=== PATIENT | female | born 1970 | race Caucasian/White ===

== ENCOUNTER 2016-08-23 09:44 | Emergency (ER) | payer OTHER ==
[2016-08-23] MEDS ORDERED: ONDANSETRON HCL 4 MG/2 ML VIAL ONE (11:12)
[2016-08-23 11:26] LABS: BASOPHIL# 0.1 X 10^3uL (0.0-0.1); BASOPHILS 0.7 % (0.0-2.0); EOSINOPHILS 2.5 % (0.0-6.0); EOSINOPHILS# 0.3 X 10^3uL (0.0-0.4); HEMATOCRIT 44.1 % (36.0-48.0); HEMOGLOBIN 15.2 g/dL (12.0-16.0); LYMPHOCYTES# 1.2 X 10^3uL (0.8-3.8); MEAN CELL VOLUME 82.5 fL (80.0-100.0); MEAN CORPUS. HGB CONCENTRATION 34.6 g/dL (32.0-36.0); MEAN CORPUSCULAR HEMOGLOBIN 28.5 pg (29.0-35.0); MEAN PLATELET VOLUME 8.6 fL (7.4-10.4); MONOCYTES 4.9 % (2.0-10.0); MONOCYTES# 0.5 X 10^3uL (0.2-1.0); NEUTROPHILS 80.9 % (54.0-75.0); NEUTROPHILS# 9.1 X 10^3uL (2.6-6.7); PLATELET COUNT 281 X 10^3uL (130-440); RED BLOOD COUNT 5.34 X 10^6uL (4.20-6.10); RED CELL DISTRIBUTION WIDTH 12.6 % (11.5-14.5); WHITE BLOOD COUNT 11.2 X 10^3uL (3.9-10.7)
[2016-08-23 11:41] LABS: C-REACTIVE PROTEIN < 5.0 mg/L (<10.0)
--- NOTE | 2016-08-23 12:10 | ER NURSING DOCUMENTATION ---
Nurse's Notes [facility] Name:Jie Park Age:45 yrs Sex:Female :1970 Arrival Date:08/23/2016 Time:09:44 Bed1 Private MD: Diagnosis:Breast Infection Presentation: 08/23 09:52 Acuity: NESTOR 3 st 10:17 Presenting complaint: Patient states: Pt had a lumpectomy/cyst drainage done on the 5th at [facility] in [place]. Since her cyst drainage she had has increased pain and discomfort. Transition of care: Home. 10:17 Method Of Arrival: Private Vehicle rh Triage Assessment: 10:19 General: Appears in no apparent distress, Behavior is cooperative. Pain: Complains of rh pain in left clavicle and left breast. EENT: Oral mucosa is dry. Neuro: Level of Consciousness is awake, alert, obeys commands, Oriented to person, place, time, event. Cardiovascular: Capillary refill < 3 seconds. Respiratory: Airway is patent Respiratory effort is even, unlabored, Respiratory pattern is regular, symmetrical. Musculoskeletal: Circulation, motion, and sensation intact Range of motion intact in all extremities. Historical: - Allergies: PENICILLINS; SULFA (SULFONAMIDES); - Home Meds: 1. ibuprofen 600 mg oral tab 1 tab every 4 hours 2. acetaminophen 1,000 mg oral pack - PMHx: BREAST CANCER; - PSHx: LUMPECTOMY; - Tetanus: < 10 years. - Ebola Screening: : Patient negative for fever greater than or equal to 101.5 degrees Fahrenheit, and additional compatible Ebola Virus Disease symptoms. - Immunization history: Flu Vaccine < 1 year. - Social history: Smoking status: Patient states was never smoker of tobacco. Screenin:20 Infectious Disease Risk None. Abuse screen: Denies threats or abuse. Denies injuries rh from another. Nutritional screening: No deficits noted. Assessment: 10:20 See Triage Assessment done by same RN. rh Vital Signs: 10:00 BP 145 / 100; Pulse 97; Resp 18; Temp 98.4(O); Pulse Ox 98% on R/A; Weight 53.07 kg; rh Height 5 ft. 6 in. (167.64 cm); Pain 6/10; 11:00 Pulse 63; Resp 15; Pulse Ox 98% on 1 lpm NC; Pain 7/10; rh 12:08 BP 94 / 71; Pulse 69; Resp 16; Pulse Ox 95% on R/A; Pain 2/10; rh 10:00 Body Mass Index 18.88 (53.07 kg, 167.64 cm) rh ED Course: 09:50 Patient arrived in ED. lr3 09:52 Triage completed. rh 09:58 Ryan Fabian MD is Attending Physician. cd 10:00 Notified ED Physician of patient's arrival and chief complaint. Dr. Fabian notified. rh 10:16 Rupa Amezcua is Primary Nurse. rh 10:20 Valuables Remains with patient Patient has correct armband on for positive rh identification. Placed in gown. Bed in low position. Call light in reach. Side rails up X 1. 10:21 Warm blanket given. Pillow given. Family accompanied patient. rh 10:57 Inserted peripheral IV: 20 gauge in right antecubital area and blood collected. st 11:49 Job Skelton MD is Referral Physician. cd 11:56 Discontinued lock intact, bleeding controlled, pressure dressing applied, No rs redness/swelling at site. C/O pain with wrap over IV site, site looks healthy. States everything has been painful (IV, BP cuff, position in bed, etc). Administered Medications: 11:14 Drug: Dilaudid 0.5 mg; Route: IVP; Site: right antecubital; rh 12:08 Follow up: Response: Pain is decreased rh 11:18 Drug: Zofran 4 mg; Route: IVP; Infused Over: 2 mins; Site: right antecubital; rh 11:23 Follow up: Response: No adverse reaction rh 11:19 Drug: Dilaudid 0.5 mg; Route: IVP; Site: right antecubital; rh 12:08 Follow up: Response: Pain is decreased rh Outcome: 11:49 Discharge ordered by MD. cd 12:08 Discharged to home via wheelchair, with significant other. rh 12:08 Condition: improved 12:08 Discharge Assessment: Patient awake, alert and oriented x 3. No cognitive and/or functional deficits noted. Patient verbalized understanding of disposition instructions. 12:08 Discharge instructions given to patient, significant other, Instructed on discharge instructions, follow up and referral plans. medication usage, no drinking with medication, no driving heavy equipment, Demonstrated understanding of instructions, medications, Prescriptions given X 2. 12:08 IV D/Umberto 12:09 Patient left the ED. 08/24 18:14 Discharge F/U Call: Unable to reach: no answer nf Signatures: Jes Juarez RN RN st Stalker, Rachael, RN RN rs Friel, Nicole, RN RN nf Daley, Chris, MD MD cd Hofsess, Rachel rh Roach, Lelia lr3
--- NOTE | 2016-08-23 12:10 | ER PHYSICIAN DOCUMENTATION ---
Physician Documentation [facility] Name:Jie Park Age:45 yrs Sex:Female :1970 Arrival Date:08/23/2016 Time:09:44 Bed1 Private MD: Ryan Barba Disposition: 08/23 11:48 Critical Care: not applicable. cd Disposition: 08/23/16 11:49 Discharged to Home/Self Care. Impression: Breast Infection. - Condition is Good. - Discharge Instructions: BREAST INFECTION - MASTITIS. - Prescriptions for Clindamycin HCl 150 mg Oral Capsule - take 1 capsule by ORAL route every 6 hours for 10 days; 40 capsule. Hydrocodone- Acetaminophen 5-325 mg Oral Tablet - take 1 tablet by ORAL route every 6 hours As needed; 20 tablet. - Medical Reconciliation form form. - Follow up: Job Skelton MD; When: Tomorrow; Reason: Recheck today's complaints, Continuance of care. - Problem is new. - Symptoms are resolved. - Notes: Ice packs to breast. Clindamycin 150mg by mouth every 6 hours for 10 days. Hydrocodone one tab with food by mouth every 4 - 6 hours as needed for pain. Follow up with Dr. Skelton, General Surgeon, tomorrow. HPI: 09:55 This 45 yrs old Female presents to ER via Private Vehicle with complaints of cd Breast Problem - Pain. 09:55 The patient or guardian reports chest pain that is located primarily in the left cd breast. Onset: gradually, 3 day(s) ago. The pain does not radiate. There has been no movement of pain. Associated signs and symptoms: The patient has no apparent associated signs or symptoms. The chest pain is described as aching. Duration: The patient or guardian reports a single episode, that is still ongoing. Severity of pain: At its worst the pain was severe in the emergency department the pain is unchanged. Patient recently underwent Left Breast Cyst Aspiration on the August , 2 weeks ago. It was done by the Interventional Radiology Department at [facility]. She has also had a medial left breast lumpectomy by Dr. Waldemar Lucas. She has had pain over the aspiration region of the lateral left breast. She denies fever / chills / drainage or swelling. Historical: - Allergies: PENICILLINS; SULFA (SULFONAMIDES); - Home Meds: 1. ibuprofen 600 mg oral tab 1 tab every 4 hours 2. acetaminophen 1,000 mg oral pack - PMHx: BREAST CANCER; - PSHx: LUMPECTOMY; - Tetanus: < 10 years. - Ebola Screening: : Patient negative for fever greater than or equal to 101.5 degrees Fahrenheit, and additional compatible Ebola Virus Disease symptoms. - Immunization history: Flu Vaccine < 1 year. - Social history: Smoking status: Patient states was never smoker of tobacco. ROS: 10:18 Constitutional: Negative for chills, fever. cd 10:18 Cardiovascular: Negative for edema, palpitations. 10:18 Respiratory: Negative for cough, shortness of breath, wheezing. 10:18 Abdomen/GI: Negative for abdominal pain, nausea, vomiting. 10:18 : Negative for urinary symptoms, urinary frequency, burning with urination. 10:18 MS/extremity: Negative for acute changes. 10:18 Skin: Positive for erythema, of the left breast, lateral aspect, Negative for abscesses, diaphoresis. 10:18 Endocrine: 10:18 All other systems are negative. Exam: 10:18 Constitutional: The patient appears alert, awake, non-diaphoretic, non-toxic, well cd developed, well nourished, anxious, in obvious distress, moderately distressed. 10:18 Chest/axilla: Breasts: abscess, not appreciated, mass(es), absent, nipple discharge, is not appreciated, rash, that is mild of the left breast, swelling, is not appreciated, tenderness, that is severe, of the left breast. 10:18 Cardiovascular: Rate: normal, Rhythm: regular. 10:18 Respiratory: the patient does not display signs of respiratory distress, Respirations: normal, no acute changes, Breath sounds: are normal, clear throughout. 10:18 Abdomen/GI: Exam negative for acute changes. 10:18 Skin: Appearance: normal except for affected area. Vital Signs: 10:00 BP 145 / 100; Pulse 97; Resp 18; Temp 98.4(O); Pulse Ox 98% on R/A; Weight 53.07 kg; rh Height 5 ft. 6 in. (167.64 cm); Pain 6/10; 11:00 Pulse 63; Resp 15; Pulse Ox 98% on 1 lpm NC; Pain 7/10; rh 12:08 BP 94 / 71; Pulse 69; Resp 16; Pulse Ox 95% on R/A; Pain 2/10; rh 10:00 Body Mass Index 18.88 (53.07 kg, 167.64 cm) MDM: 09:58 Patient medically screened. cd 10:15 Differential diagnosis: Left Breast cellulitis vs small cyst reoccurance. The patient cd was not given aspirin in the Emergency Department due to not indicated. Patient did not receive fibrinolytic due to not indicated. 11:45 Data reviewed: vital signs, nurses notes, old medical records, and as a result, I will cd discharge patient, administer IV fluids, prescribe pain medication, Dilaudid. 11:48 Data interpreted: pediatric care coordinator: not applicable for this patient encounter. Pulse cd oximetry: on room air is 95 %. Interpretation: normal. ECG: ECG: an electrocardiogram was deferred on this patient. 11:50 Response to treatment: the patient's symptoms have markedly improved after treatment, cd the patient's condition has returned to base line, the patient is now symptom free, and as a result, I will discharge patient. 08/23 11:34 Order name: CBC AUTO DIF, MDIF/RMOR IF IND; Complete Time: 11:41 EDMS 08/23 11:41 Interpretation: Normal Except: WHITE BLOOD COUNT 11.2; NEUTROPHILS 80.9. 08/23 11:41 Order name: C-REACTIVE PROTEIN; Complete Time: 11:41 EDMS 08/23 11:41 Interpretation: Normal. 08/23 10:39 Order name: Iv Saline Lock; Complete Time: 10:57 cd Dispensed Medications: 11:14 Drug: Dilaudid 0.5 mg; Route: IVP; Site: right antecubital; rh 12:08 Follow up: Response: Pain is decreased rh 11:18 Drug: Zofran 4 mg; Route: IVP; Infused Over: 2 mins; Site: right antecubital; rh 11:23 Follow up: Response: No adverse reaction rh 11:19 Drug: Dilaudid 0.5 mg; Route: IVP; Site: right antecubital; rh 12:08 Follow up: Response: Pain is decreased rh Signatures: Ryan Fabian MD MD cd Hofsess, Rachel rh
== END 2016-08-23 12:10 | disposition home or self-care (01) ==
LOC: ER 09:44
DX: N61.0 Mastitis without abscess (principal); T81.4XXA Infection following a procedure, initial encounter; Z98.890 Other specified postprocedural states; Z85.3 Personal history of malignant neoplasm of breast
CPT/HCPCS: 85025; 86140; 96374; 96375; 99284; J1170; J2405

== ENCOUNTER 2016-09-24 10:10 | Emergency (ER) | payer OTHER ==
[2016-09-24] MEDS ORDERED: LIDOCAINE HCL 1% 20 ML VIAL ONE (10:41)
[2016-09-24] MEDS ORDERED: LORazepam 2 MG/ML INJ ONE (10:53)
[2016-09-24] MEDS ORDERED: NORMAL SALINE 500 ML IV ONE (10:55)
--- NOTE | 2016-09-24 12:30 | ER NURSING DOCUMENTATION ---
Nurse's Notes [facility] Name:Jie Park Age:46 yrs Sex:Female :1970 Arrival Date:09/24/2016 Time:10:10 Bed1 Private MD:Sumaya Guidry Diagnosis:Breast Problem Presentation: 09/24 10:13 Acuity: NESTOR 3 sc1 10:18 Presenting complaint: Patient states: pain left breast. Transition of care: Home. pa1 Notified ED Physician of patient's arrival and CC Agusto Conrad notified. 10:18 Method Of Arrival: Private Vehicle pa1 Triage Assessment: 10:21 General: Appears distressed, well developed, well nourished, well groomed, Behavior is sc1 cooperative, crying. Pain: Complains of pain in left breast. Historical: - Allergies: PENICILLINS; SULFA (SULFONAMIDES); Tramadol HCl; - Home Meds: 1. acetaminophen 1,000 mg oral pack 2. Zithromax Z-Sam 250 mg oral tab 1 tab once daily 3. Naproxen Sodium Oral 4. gabapentin oral - PMHx: BREAST CANCER; Breast Infection (August 23, 2016); - PSHx: LUMPECTOMY; - Ebola Screening: : Patient negative for fever greater than or equal to 101.5 degrees Fahrenheit, and additional compatible Ebola Virus Disease symptoms. Patient denies exposure to infectious person. Patient denies travel to an Ebola-affected area in the 21 days before illness onset. No symptoms or risks identified at this time. . - Immunization history: Flu Vaccine < 1 year. - Social history: Smoking status: Patient states was never smoker of tobacco. Patient/guardian denies using alcohol, street drugs, IV drugs, marijuana. Screenin:22 Infectious Disease Risk None. Abuse screen: Denies threats or abuse. Nutritional sc1 screening: No deficits noted. Assessment: 11:09 Reassessment: pt hyperventilating, screaming and saying she can't breathe. Pt. coached sc1 to slow breathing down. O2 sat 100%. Pt. c/o numbness and tingling in all extremities. . Vital Signs: 10:22 BP 140 / 108; Pulse 104; Resp 20; Temp 98.1; Pulse Ox 99% on R/A; sc1 10:50 BP 153 / 94 (auto/); sc1 10:52 Pulse Ox 100% ; sc1 10:52 Pulse 135; Resp 32; sc1 ED Course: 10:12 Patient arrived in ED. ama 10:12 Sumaya Guidry DO is Private Physician. ama 10:12 Sharon Paredes, RN is Primary Nurse. sc1 10:13 Triage completed. sc1 10:18 Sharon Paredes, RN is Primary Nurse. sc1 10:19 Neil Liz MD is Attending Physician. 10:22 Notified ED Physician of patient's arrival and chief complaint. Dr. Liz notified. Arm sc1 band placed on Bed in low position Call Light in Reach Gowned HOB Elevated. 10:49 Inserted peripheral IV: 22 gauge in right forearm. sc1 10:50 Pulse ox on. sc1 10:50 Oxygen Oxygen administration via nasal cannula @ 2L/min. pa1 12:13 Sumaya Guidry DO is Referral Physician. 12:29 Valuables Remains with patient. sc1 12:38 Other [place] [facility] [place] Administered Medications: 10:47 Drug: Ativan 1 mg; Route: IVP; Site: right forearm; pa1 12:26 Follow up: Response: Anxiety increased [facility] [place] 10:47 Drug: Dilaudid 1 mg; Route: IVP; Site: right forearm; pa1 12:27 Follow up: Response: Anxiety increased [facility] [place] 10:48 Drug: NS 0.9% 500 ml; Volume: 500 ml; Route: IV; Rate: 100 calculated rate; Site: right sc1 forearm; Delivery: [place] [facility]; 12:26 Follow up: IV Status: Infusion discontinued; IV Intake: 125ml [facility] [place] Intake: 12:26 IV: 125ml; Total: 125ml. [facility] [place] Outcome: 12:13 Discharge ordered by . pau 12:27 Discharged to home via wheelchair. pa1 12:27 Condition: stable 12:27 Discharge instructions given to patient, Instructed on discharge instructions, follow up and referral plans. medication usage, Demonstrated understanding of instructions, Pt. refused the Percocet rx. 12:29 Patient left the ED. [facility] [place] 09/25 12:10 Discharge F/U Call: Spoke with: patient. Are you having any pain? yes. Pain level is sj 6 / 10 Have you filled your prescriptions? n/a Did your discharge instructions answer all of your questions? yes Have you made a f/u appointment? yes Overall Care on a scale of 1-10 with 10 being the best care, you rate our care as: Other comments: became very nauseated from medications received Signatures: Sharon Paredes RN RN sc1 Neil Liz MD MD jm Averdick, Andrew, Reg Reg ama Janzen, Yissel newman
--- NOTE | 2016-09-24 12:30 | ER PHYSICIAN DOCUMENTATION ---
Physician Documentation [facility] Name:Jie Park Age:46 yrs Sex:Female :1970 Arrival Date:09/24/2016 Time:10:10 Bed1 Private MD:Sumaya Guidry ED, John Disposition: 09/24/16 12:13 Discharged to Home/Self Care. Impression: Breast Problem. - Condition is Good. - Discharge Instructions: BREAST CYSTS Presumed - FIBROCYSTIC BREAST DISEASE, Presumed. - Prescriptions for Percocet 5- 325 mg Oral Tablet - take 1 tablet by ORAL route every 6 hours As needed; 20 tablet. - Medical Reconciliation form form. - Follow up: Sumaya Guidry DO; When: 2 - 3 days; Reason: Continuance of care. - Problem is an ongoing problem. - Symptoms have improved. - Notes: Follow Dr. Smith's instructions. HPI: 09/24 11:35 This 46 yrs old Female presents to ER via Private Vehicle with complaints of jm Breast Problem. 11:35 L breast cyst. . Description: Very tender. . Onset: The symptom(s)/episode jm began/occurred yesterday. Possible cause(s): chronic problem. . Associated signs and symptoms: Pertinent negatives: erythema. The patient has experienced similar episodes in the past, a few times, and the symptoms today are exactly the same, to when the patient was apparently diagnosed with painful breast cysts. . The patient has not recently seen a physician. 12:22 Pt in excruciating pain from her breast. She's had this before and thinks it's a cyst. .jm Historical: - Allergies: PENICILLINS; SULFA (SULFONAMIDES); Tramadol HCl; - Home Meds: 1. acetaminophen 1,000 mg oral pack 2. Zithromax Z-Sam 250 mg oral tab 1 tab once daily 3. Naproxen Sodium Oral 4. gabapentin oral - PMHx: BREAST CANCER; Breast Infection (August 23, 2016); - PSHx: LUMPECTOMY; - Ebola Screening: : Patient negative for fever greater than or equal to 101.5 degrees Fahrenheit, and additional compatible Ebola Virus Disease symptoms. Patient denies exposure to infectious person. Patient denies travel to an Ebola-affected area in the 21 days before illness onset. No symptoms or risks identified at this time. . - Immunization history: Flu Vaccine < 1 year. - Social history: Smoking status: Patient states was never smoker of tobacco. Patient/guardian denies using alcohol, street drugs, IV drugs, marijuana. ROS: 12:23 Constitutional: Negative for fever. 12:23 Cardiovascular: Positive for chest pain, of the left breast. 12:23 Skin: Negative for abrasions, cellulitis. Exam: 12:24 Constitutional: The patient appears alert, awake, anxious, in obvious distress, jm severely distressed. 12:24 Chest/axilla: Breasts: abscess, not appreciated, cellulitis, is not appreciated, nipple discharge, is not appreciated, Could not find a true breast mass. Perhaps I palpated some fibrous tissue. . 12:24 Respiratory: the patient does not display signs of respiratory distress, Respirations: normal. 12:24 Skin: Appearance: Color: pink, abscess, not appreciated, cellulitis, is not appreciated. Vital Signs: 10:22 BP 140 / 108; Pulse 104; Resp 20; Temp 98.1; Pulse Ox 99% on R/A; sc1 10:50 BP 153 / 94 (auto/); sc1 10:52 Pulse Ox 100% ; sc1 10:52 Pulse 135; Resp 32; sc1 MDM: 10:19 Patient medically screened. 12:25 Differential diagnosis: abscess, cellulitis. Data reviewed: vital signs, nurses notes, old medical records, and as a result, I will discharge patient. Counseling: I had a detailed discussion with the patient and/or guardian regarding: the historical points, exam findings, and any diagnostic results supporting the discharge/admit diagnosis, the need for outpatient follow up, with the patient's primary care provider, a general surgeon. Physician consultation: Gaudencio Smith regarding need to come to ED to see patient, and will see patient immediately. ED course: Sarah did not perform any procedures, but rather reviewed old records and spoke w pt that there is nothing left to do but increase her gabapentin an d use pain meds for help. . 12:38 Other attached [facility] [place] 09/24 10:25 Order name: Iv Saline Lock; Complete Time: 10:48 09/24 10:25 Order name: Oxygen; Complete Time: 10:47 09/24 10:25 Order name: Pulse Ox Continuous; Complete Time: 10:47 pau Dispensed Medications: 10:47 Drug: Ativan 1 mg; Route: IVP; Site: right forearm; ms1 12:26 Follow up: Response: Anxiety increased ms1 10:47 Drug: Dilaudid 1 mg; Route: IVP; Site: right forearm; sc1 12:27 Follow up: Response: Anxiety increased [facility] [place] 10:48 Drug: NS 0.9% 500 ml; Volume: 500 ml; Route: IV; Rate: 100 calculated rate; Site: right sc1 forearm; Delivery: [place] [facility]; 12: Follow up: IV Status: Infusion discontinued; IV Intake: 125ml ms1 Signatures: Sharon Paredes RN RN ms1 Neil Liz MD MD
== END 2016-09-24 12:30 | disposition home or self-care (01) ==
LOC: ER 10:10
DX: N64.4 Mastodynia (principal); N64.89 Other specified disorders of breast; Z85.3 Personal history of malignant neoplasm of breast; Z79.899 Other long term (current) drug therapy
CPT/HCPCS: 96361; 96374; 96375; 99284; J1170; J2060; J7040